=== PATIENT | male | born 1995 ===

== ENCOUNTER → 2017-04-28 | Outpatient (REF) | LOC: WSOH 14:27 | DX: Z00.00 Encounter for general adult medical examination without abnormal findings (principal) ==

== ENCOUNTER → 2017-05-01 | Outpatient (REF) | LOC: WSOH 11:00 | DX: Z01.89 Encounter for other specified special examinations (principal) ==

== ENCOUNTER → 2017-05-05 | Outpatient (REF) | LOC: WSOH 09:55 | DX: Z02.89 Encounter for other administrative examinations (principal) ==